=== PATIENT | female | born 1970 | race African-American/Black ===

== ENCOUNTER 2018-07-09 22:55 | Emergency (ER) | payer BC ==
[~2018-07-09] VITALS: Ht 162.6 cm; Wt 68.0 kg
[~2018-07-09 22:55] MED LIST: ALBUTEROL SULF8.5 GM INH; CLARITIN10 M2 ORAL
[2018-07-09] MEDS ORDERED: HYDROCHLOROTHIA25 MG ORAL (23:07)
[2018-07-09 23:08] VITALS: BP 141/89
--- NOTE | 2018-07-09 23:08 | NUR ---
ED Nurse Note: Pt arrived ED from home. C/o abdominal pain with vaginal bleeding today. Pt is A/O X4. Vital signs stable at this time, waitng for orders.
[2018-07-10 00:35] LABS: APPEARANCE,URINE CLOUDY; BILIRUBIN, URINE NEGATIVE (NEGATIVE); COLOR,URINE PALE YELLOW; GLUCOSE, URINE (UA) NEGATIVE (NEGATIVE); KETONES,URINE NEGATIVE (NEGATIVE); LEUKOCYTE ESTERASE ,URINE 2+ (NEGATIVE); NITRITE,URINE NEGATIVE (NEGATIVE); PH,URINE 8 (4.5-8.0); PROTEIN,URINE 3+ (NEGATIVE); UROBILINOGEN,URINE NORMAL MG/DL (0.0-1.0)
--- NOTE | 2018-07-10 01:02 | NUR ---
ED Nurse Note: Blood and urine sent to Lab, Meds given as ordered.
--- NOTE | 2018-07-10 01:16 | Diagnostic Imaging Report ---
EXAM: Pelvic sonography, (Transabdominal and Endovaginal scans) HISTORY: Pain COMPARISON: None TECHNIQUE: High resolution real time sonographic evaluation of the pelvis has been obtained utilizing both standard transabdominal and transvaginal probe approach. FINDINGS: Heterogenous uterus with multiple fibroids suggested. Endometrial thickness 8 mm. Suspected nabothian cysts. Right ovarian follicles. Blood flow seen to the right ovary. Left ovary not visualized. Free fluid. IMPRESSION: 1. Heterogenous uterus with multiple masses suspected to represent fibroids. 2. Unremarkable right ovary with small follicles. 3. Nonspecific free fluid. Nonvisualized left ovary.
[2018-07-10 01:32] LABS: BASOPHILS % (AUTO) 1.2 % (0.0-2.0); EOSINOPHILS % (AUTO) 2.9 % (0.0-3.0); HEMATOCRIT 38.3 % (37.0-47.0); HEMOGLOBIN 13.2 G/DL (12.0-16.0); LYMPHOCYTES % (AUTO) 31.5 % (20.0-45.0); MEAN CORPUSCULAR VOLUME 88 FL (80-99); MONOCYTES % (AUTO) 7.8 % (1.0-10.0); NEUTROPHILS % (AUTO) 56.6 % (45.0-75.0); PLATELET COUNT 272 K/UL (150-450); RED BLOOD COUNT 4.33 M/UL (4.20-5.40); RED CELL DISTRIBUTION WIDTH 12.7 % (11.6-14.8); WHITE BLOOD COUNT 4.7 K/UL (4.8-10.8)
[2018-07-10 01:53] LABS: ANION GAP 7 mmol/L (5-15); BLOOD UREA NITROGEN 9 mg/dL (7-18); CARBON DIOXIDE 29 MMOL/L (21-32); CHLORIDE 103 MMOL/L (98-107); POTASSIUM 3.5 MMOL/L (3.5-5.1); SODIUM 139 MMOL/L (136-145)
[2018-07-10 01:57] LABS: ALANINE AMINOTRANSFERASE 27 U/L (12-78); ALBUMIN 3.6 G/DL (3.4-5.0); ALBUMIN/GLOBULIN RATIO 1.1 (1.0-2.7); ALKALINE PHOSPHATASE 72 U/L (46-116); ASPARTATE AMINO TRANSFERASE 31 U/L (15-37); BILIRUBIN,TOTAL 0.6 MG/DL (0.2-1.0)
--- NOTE | 2018-07-10 02:20 | Emergency Room Report ---
History of Present Illness General Chief Complaint: Female Urogenital Problems Source: Patient Present Illness [facility] The patient presents with vaginal bleeding. She had a period on June 28 but started bleeding 2 days ago. Earlier today she passed 3 fairly large blood clots. She is trying to get and believes that she may be suffering from a miscarriage. The patient had fairly severe crampy suprapubic pain earlier today. This is improved and she rates the pain at 5/10 and crampy. He denies dysuria. No fevers or chills. She was somewhat nauseated for the last 2 days without any vomiting. Her breasts are nontender. test was performed. The patient has a history of uterine fibroids. She had a procedure done in 2009 to remove the fibroids. History of hypertension and hyperthyroidism. She has variable compliance with her thyroid medication. No chest pain, palpitations, diarrhea, shortness of breath, depression, visual changes, headache. 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 Reviewed Nursing Documentation: PMH: Agreed; PSxH: Agreed Nursing Documentation-PMH Past Medical History: No History, Except For Hx Hypertension: Yes Review of Systems All Other Systems: negative except mentioned in HPI Physical Exam Vital Signs Date Time Temp Pulse Resp B/P (MAP) Pulse Ox O2 Delivery O2 Flow Rate FiO2 07/09/18 22:59 99.0 81 14 151/100 98 Room Air Sp02 EP Interpretation: reviewed, normal General Appearance: well appearing, no apparent distress, GCS 15 Head: normocephalic Eyes: bilateral eye normal inspection, bilateral eye PERRL ENT: moist mucus membranes Neck: supple Respiratory: lungs clear, normal breath sounds Cardiovascular #1: regular rate, rhythm Cardiovascular #2: 2+ radial (R) Gastrointestinal: normal inspection, normal bowel sounds, non tender, no mass, non-distended Genitourinary: no CVA tenderness, deferred - For pelvic ultrasound Musculoskeletal: back normal, gait/station normal, normal range of motion, no calf tenderness Neurologic: alert, oriented x3, grossly normal Psychiatric: mood/affect normal Skin: normal inspection, warm/dry Medical Decision Making Diagnostic Impression: Primary Impression: Dysfunctional uterine bleeding Additional Impressions: Fibroids Suprapubic pain ER Course Patient presents with abnormal vaginal bleeding and pain. Differential includes fibroids, threatened miscarriage, ectopic , UTI amongst others. Evaluation will be with labs and ultrasound. The patient will be treated with IV hydration and Tylenol. CBC normal. CMP unremarkable. Urinalysis with microscopic hematuria and minimal pyuria. Pelvic ultrasound with multiple fibroids. test negative. Discussed findings with patient. We discussed that antibiotics were not begun and that we wait on culture results as there is no clear evidence of urinary tract infection. Patient advised that she needs to follow-up with her [employer]. She is concerned as she wants to get . Patient improved and stable for outpatient observation and treatment. Laboratory Tests Test 07/09/18 23:55 07/10/18 01:05 Urine Color Pale yellow Urine Appearance Cloudy Urine pH 8 (4.5-8.0) Urine Specific [place] 1.015 (1.005-1.035) Urine Protein 3+ (NEGATIVE) H Urine Glucose (UA) Negative (NEGATIVE) Urine Ketones Negative (NEGATIVE) Urine Blood 5+ (NEGATIVE) H Urine Nitrite Negative (NEGATIVE) Urine Bilirubin Negative (NEGATIVE) Urine Urobilinogen Normal MG/DL (0.0-1.0) Urine Leukocyte Esterase 2+ (NEGATIVE) H Urine RBC 60-80 /HPF (0 - 2) H Urine WBC 5-10 /HPF (0 - 2) H Urine Squamous Epithelial Cells Moderate /LPF (NONE/OCC) H Urine Bacteria Few /HPF (NONE) Urine HCG, Qualitative Negative (NEGATIVE) White Blood Count 4.7 K/UL (4.8-10.8) L Red Blood Count 4.33 M/UL (4.20-5.40) Hemoglobin 13.2 G/DL (12.0-16.0) Hematocrit 38.3 % (37.0-47.0) Mean Corpuscular Volume 88 FL (80-99) Mean Corpuscular Hemoglobin 30.5 PG (27.0-31.0) Mean Corpuscular Hemoglobin Concent 34.5 G/DL (32.0-36.0) Red Cell Distribution Width 12.7 % (11.6-14.8) Platelet Count 272 K/UL (150-450) Mean Platelet Volume 6.2 FL (6.5-10.1) L Neutrophils (%) (Auto) 56.6 % (45.0-75.0) Lymphocytes (%) (Auto) 31.5 % (20.0-45.0) Monocytes (%) (Auto) 7.8 % (1.0-10.0) Eosinophils (%) (Auto) 2.9 % (0.0-3.0) Basophils (%) (Auto) 1.2 % (0.0-2.0) Prothrombin Time 10.5 SEC (9.30-11.50) Prothrombin Time INR 1.0 (0.9-1.1) PTT 27 SEC (23-33) Sodium Level 139 MMOL/L (136-145) Potassium Level 3.5 MMOL/L (3.5-5.1) Chloride Level 103 MMOL/L (98-107) Carbon Dioxide Level 29 MMOL/L (21-32) Anion Gap 7 mmol/L (5-15) Blood Urea Nitrogen 9 mg/dL (7-18) Creatinine 1.0 MG/DL (0.55-1.30) Estimate Glomerular Filtration Rate > 60 mL/min (>60) Glucose Level 94 MG/DL (74-106) Calcium Level 9.0 MG/DL (8.5-10.1) Total Bilirubin 0.6 MG/DL (0.2-1.0) Aspartate Amino Transferase (AST) 31 U/L (15-37) Alanine Aminotransferase (ALT) 27 U/L (12-78) Alkaline Phosphatase 72 U/L (46-116) Total Protein 6.9 G/DL (6.4-8.2) Albumin 3.6 G/DL (3.4-5.0) Globulin 3.3 g/dL Albumin/Globulin Ratio 1.1 (1.0-2.7) Lipase 238 U/L (73-393) CT/MRI/US Diagnostic Results CT/MRI/US Diagnostic Results : Imaging Test Ordered: u/s Impression fibroids Last Vital Signs Date Time Temp Pulse Resp B/P (MAP) Pulse Ox O2 Delivery O2 Flow Rate FiO2 07/10/18 02:28 99.0 87 14 142/87 98 Room Air Status: improved Disposition: HOME, SELF-CARE Condition: Improved Scripts Hydrocodone Bit/Acetaminophen 5-325* (NORCO 5-325*) 1 Each Tablet 1 TAB ORAL Q6H PRN for For Pain, #6 TAB 0 Refills Prov: Rodríguez Sykes MD 07/10/18 Ibuprofen* (MOTRIN*) 600 Mg Tablet 600 MG ORAL Q6H PRN for For Pain, #20 TAB Prov: Rodríguez Sykes MD 07/10/18 Referrals: NON PHYSICIAN (PCP) Rodríguez Sykes MD Jul 10, 2018 02:20
[2018-07-10] MEDS ORDERED: NORCO 5-325 TA1 EACH ORAL (02:22)
[2018-07-10] MEDS ORDERED: IBUPROFEN600 MG ORAL (02:22)
[2018-07-10 02:28] VITALS: BP 142/87
--- NOTE | 2018-07-10 02:28 | NUR ---
ED Nurse Note: Pt has seen by Dr. Sykes, all orders carried out, U/S done. Pt is ready for discharge, D/c instruction and prescription given to Pt and verbalized understanding. IV/ ID band removed. Pt is d/c from ED with steady gait and all her belongings. Accompanied by her family.
== END 2018-07-10 02:28 | disposition home or self-care (01) ==
LOC: EMR 23:09
DX: N93.8 Other specified abnormal uterine and vaginal bleeding (principal); D25.9 Leiomyoma of uterus, unspecified
CPT/HCPCS: 36415; 76830; 76856; 80053; 81003; 81025; 83690; 85025; 85610; 85730; 86850; 86900; 86901; 87086; 96360; 99284